=== PATIENT | male | born 1970 | race African-American/Black ===

== ENCOUNTER 2018-11-10 11:00 | Emergency (ER) | payer SELFPAY ==
[2018-11-10 11:01] VITALS: BP 133/66; PULSE 98; RESP 17; TEMP 36.8; O2SAT 99; BMI 27.8
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
[2018-11-10] MEDS: Naproxen 500 MG Tablet PO (11:22)
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
--- NOTE | 2018-11-10 12:01 | ED.DEP ---
ED Disposition - Plan for ED Patient: Instructions: ED Concussion Prescriptions: Naproxen [Naprosyn] 500 mg PO BID PRN #20 tab Cyclobenzaprine [Flexeril] 10 mg PO TID PRN #20 tab PRN Reason: Muscle Spasm Referrals: Arden Almaraz MD [STAFF PHYSICIAN] -
[2018-11-10 12:20] VITALS: BP 117/79; PULSE 62; RESP 16; O2SAT 98
== END 2018-11-10 12:20 | disposition home or self-care (01) ==
PROVIDERS: Emergency Provider Emergency Medicine
DX: S06.0X0A Concussion without loss of consciousness, initial encounter (principal); M54.2 Cervicalgia; V89.2XXA Person injured in unspecified motor-vehicle accident, traffic, initial encounter; Y93.9 Activity, unspecified; Y92.9 Unspecified place or not applicable; Y99.9 Unspecified external cause status; F17.290 Nicotine dependence, other tobacco product, uncomplicated
CPT/HCPCS: 70450; 99284

== ENCOUNTER 2018-12-09 21:32 | Emergency (ER) | payer SELFPAY ==
[2018-12-09 21:34] VITALS: BP 143/95; PULSE 89; RESP 18; TEMP 37; O2SAT 99; BMI 28.8
--- NOTE | 2018-12-09 23:04 | CT_ITS ---
STUDY: CT BRAIN WITHOUT CONTRAST REASON FOR EXAM: Male, 48 years old. Headache, left-sided, elevated blood pressure, sinus issues. RADIATION DOSAGE (If Supplied By Facility): CTDIvol = ( 44.99 ) mGy, DLP = ( 812.98 ) mGycm TECHNIQUE: Transaxial CT imaging of the brain was performed without administration of intravenous contrast material. Individualized dose optimization techniques were used for this CT. COMPARISON: CT brain noncontrast November 10, 2018 FINDINGS: Normal soft tissue structures. Normal calvarium. Normal size ventricles and extra-axial spaces for the patient's age. Normal white matter tracts of the cerebral hemispheres. Normal basal ganglia and thalami. Normal brainstem. Normal cerebellum. There is no intracranial hemorrhage. There are no findings of an acute ischemic infarction. Normal visualized paranasal sinuses. CT/Brain/Head without Contrast IMPRESSION: There is no acute intracranial pathology. There is no significant interval change. Electronically Signed: Fatemeh Jackson MD at 23:57 EDT , Service support ,
--- NOTE | 2018-12-09 23:12 | ED.VISSUMM ---
- ER Visit Summary Date of Service: 12/09/18 Chief Complaint: Headache and left ear pain History of Present Illness: The patient is a 48 M who presents with headache and left ear pain that has been off and on for the past 2 months. Patient states his headache is only on the left side of his head. Patient describes it as a pressure sensation. Patient states it is worse over the left ear and left frontal area. Patient states he had a similar episode several years ago and was diagnosed with sinus infection. Patient states he was given an antibiotic at that time which resolved his headache. Patient does admit to some upper respiratory congestion. Patient also admits to some nausea and vomiting recently. Patient states she feels like there is also some pressure behind his left eye. Patient denies any visual changes however. Physical Examination: Vital signs are stable. Patient is afebrile. Patient is in no acute distress. Oral mucosa is pink and moist. Oropharynx is clear. Tympanic membranes are clear bilateral. Nasal mucosa is congested. There is some mild tenderness over the left frontal sinus. There is no tenderness over the right frontal or bilateral maxillary sinuses. Neck is supple. Trachea is midline. There is no JVD noted. Heart was regular rate and rhythm. Lungs are clear and equal bilateral. Cranial nerves II through XII are intact. There are no focal motor or sensory deficits noted. Test Results: CT scan of the brain was obtained. There is no acute intracranial process. There is no evidence of sinusitis. Emergency Department Course and Treatment: Patient was given IV fluids. Patient was given Compazine and Benadryl. Patient states his headache has improved with this. Patient was instructed to go home and rest. Patient was instructed to follow-up with his primary care physician in 5 to 7 days for further evaluation of his headaches. He was advised that this may be migraine headache, trigeminal neuralgia, or cluster headache. Patient was advised that this would need to be further evaluated as an outpatient. Patient and his understood and were agreeable with the plan. All questions were answered. Disposition: Discharge home Impression: Headache This note was generated with [employer] dictation software. It may contain incorrect words, spelling, and punctuation that were not noted in review of the chart prior to signing ED Disposition - Plan for ED Patient: Disposition: Home or Assisted Living Diagnosis: Headache Instructions: ED Cephalgia Unspecified Referrals: Care Physician,No Primary [Primary Care Provider] - Alyse Nina DO [STAFF PHYSICIAN] - 5-7 Days
[2018-12-09] MEDS: 0.9% Normal Saline 1,000 ML 999 ML IV (23:36)
[2018-12-09] MEDS: proCHLORPERazine 10 MG/2 ML Vial IV (23:37)
[2018-12-09] MEDS: DiphenhydrAMINE 50 MG/ML Syringe 25 MG IV (23:37)
[2018-12-10 00:24] VITALS: BP 142/60; PULSE 87; RESP 18
== END 2018-12-10 00:25 | disposition home or self-care (01) ==
PROVIDERS: Emergency Provider Emergency Medicine
DX: R51 Headache (principal); H92.02 Otalgia, left ear; R11.2 Nausea with vomiting, unspecified; M54.2 Cervicalgia; Z72.0 Tobacco use
CPT/HCPCS: 70450; 96361; 96374; 96375; 99284; J7030

== ENCOUNTER → 2021-04-30 | Outpatient (CLI) | payer BC, SELFPAY | END | disposition home or self-care (01) | LOC: LABSPEC 15:37 | PROVIDERS: Referring Provider Physician Assistant Surgical; Visit Provider Physician Assistant Surgical | DX: Z20.822 Contact with and (suspected) exposure to COVID-19 (principal) | CPT/HCPCS: 87635; U0005; U0003 ==

== ENCOUNTER → 2023-08-12 | Outpatient (CLI) | payer OTHER, SELFPAY ==
[2023-08-12 10:50] LABS: Absolute Lymphocyte Count 3.93 X10^3/uL (0.83-4.51); Absolute Neutrophil Count 4.4 X10^3/uL (2.0-7.7); Basophil# 0.08 X10^3/uL; Basophil% 0.8 % (0-1); Eosinophil# 0.34 X10^3/uL; Eosinophils% 3.6 % (0-5); Hematocrit 40.7 % (40-54); Hemoglobin 13.2 g/dL (13.0-16.5); Lymphocyte # 3.93 X10^3/ul (0.83-4.51); Lymphocyte % 41.7 % (19-41); Mean Corp Hgb Conc 32.4 g/dL (32-36); Mean Corpuscular Hgb 31.2 pg (27.0-32.0); Mean Corpuscular Volume 96.2 fL (80-94); Monocyte# 0.65 X10^3/uL; Monocyte% 6.9 % (0-10); NRBC Flagged by Analyzer 0 % (0-5); Neutrophil % 46.7 % (47-70); Platelet Count 259 K/mm3 (150-450); RBC Distribution Width CV 12.7 % (11.6-14.6); RBC Distribution Width SD 44.7 fl (35.1-43.9); Red Blood Count 4.23 M/mm3 (4.6-6.2); White Blood Count 9.4 K/mm3 (4.4-11.0)
[2023-08-12 11:20] LABS: Vitamin D,25 Hydroxy 18.6 ng/mL
[2023-08-12 11:28] LABS: AST(SGOT) 26 U/L (15-37); Alanine Aminotransfer ALT/SGPT 36 U/L (16-61); Albumin, Serum 3.6 g/dL (3.2-5.0); Alkaline Phosphatase 61 U/L (45-117); Anion Gap 3 (5-15); BUN 16 mg/dL (7-18); BUN/Creat Ratio 13.2 RATIO (10-20); Calcium,Total 9.1 mg/dL (8.5-10.1); Chloride 114 mmol/L (98-107); Cholesterol 199 mg/dL (200); Creatinine, Serum 1.21 mg/dL (0.70-1.30); EST Glomerular Filtration Rate 67 mL/min (>60); Est Glom Filt Rate - Afr Amer 81 mL/min (>60); Globulin 3.5 g/dL (2.2-4.2); Glucose 100 mg/dL (74-106); High Density Lipoprotein 42 mg/dL; Potassium 4.2 mmol/L (3.5-5.1); Protein, Total 7.1 g/dL (6.4-8.2); Sodium Level 141 mmol/L (136-145); Triglycerides 249 mg/dL; Very Low Density Lipoprotein 50 mg/dL (5-40)
== END | disposition home or self-care (01) ==
LOC: MFPLAB 09:56
PROVIDERS: PCP Family Medicine; Visit Provider Family Medicine
DX: Z00.00 Encounter for general adult medical examination without abnormal findings (principal); Z13.220 Encounter for screening for lipoid disorders; Z13.1 Encounter for screening for diabetes mellitus; Z13.21 Encounter for screening for nutritional disorder
CPT/HCPCS: 36415; 80053; 80061; 82306; 85025

== ENCOUNTER → 2023-11-02 | Outpatient (CLI) | payer OTHER, SELFPAY ==
--- NOTE | 2023-11-02 15:24 | RAD_ITS ---
STUDY: X-RAY - LEFT CALCANEUS REASON FOR EXAM: Male, 53 years old. Pain TECHNIQUE: 2 view(s) of the calcaneus were obtained. COMPARISON: None. FINDINGS: Normal visualized calcaneus. RAD/Calcaneus min 2 Views IMPRESSION: Normal x-ray examination of the calcaneus. Electronically Signed: Asa Cifuentes MD at 15:28 EDT ,
--- NOTE | 2023-11-02 15:24 | RAD_ITS ---
STUDY: X-RAY - RIGHT CALCANEUS REASON FOR EXAM: Male, 53 years old. Pain TECHNIQUE: 2 view(s) of the calcaneus were obtained. COMPARISON: None. FINDINGS: Normal visualized calcaneus. RAD/Calcaneus min 2 Views IMPRESSION: Normal x-ray examination of the calcaneus. Electronically Signed: Asa Cifuentes MD at 15:28 EDT ,
[2023-11-02 17:55] LABS: Hemoglobin A1c 5.9 % (3.8-5.6)
== END | disposition home or self-care (01) ==
PROVIDERS: PCP Family Medicine; Referring Provider Nurse Practitioner Family; Visit Provider Nurse Practitioner Family
DX: M79.671 Pain in right foot (principal); R20.0 Anesthesia of skin
CPT/HCPCS: 36415; 73650; 82306; 82607; 83036

== ENCOUNTER → 2024-08-16 | Outpatient (CLI) | payer BC, SELFPAY ==
[2024-08-16 12:23] LABS: Absolute Lymphocyte Count 4.18 X10^3/uL (0.83-4.51); Absolute Neutrophil Count 3.7 X10^3/uL (2.0-7.7); Basophil# 0.05 X10^3/uL; Basophil% 0.6 % (0-1); Eosinophil# 0.29 X10^3/uL; Eosinophils% 3.3 % (0-5); Hematocrit 42.4 % (40-54); Hemoglobin 13.7 g/dL (13.0-16.5); Lymphocyte # 4.18 X10^3/ul (0.83-4.51); Mean Corp Hgb Conc 32.3 g/dL (32-36); Mean Corpuscular Hgb 30.5 pg (27.0-32.0); Mean Corpuscular Volume 94.4 fL (80-94); Mean Platelet Vol. 10.2 fl (6.2-12.0); Monocyte# 0.67 X10^3/uL; Monocyte% 7.5 % (0-10); NRBC Flagged by Analyzer 0 % (0-5); Neutrophil # 3.68 X10^3/uL (2.7-7.7); Neutrophil % 41.4 % (47-70); Platelet Count 272 K/mm3 (150-450); RBC Distribution Width CV 12.4 % (11.6-14.6); RBC Distribution Width SD 43.1 fl (35.1-43.9); Red Blood Count 4.49 M/mm3 (4.6-6.2); White Blood Count 8.9 K/mm3 (4.4-11.0)
[2024-08-16 12:41] LABS: Vitamin D,25 Hydroxy 16.3 ng/mL
[2024-08-16 12:44] LABS: AST(SGOT) 24 U/L (15-37); Alanine Aminotransfer ALT/SGPT 53 U/L (16-61); Albumin, Serum 3.6 g/dL (3.2-5.0); Alkaline Phosphatase 65 U/L (45-117); Anion Gap 6 (5-15); BUN 23 mg/dL (7-18); BUN/Creat Ratio 19.2 RATIO (10-20); Calcium,Total 9.1 mg/dL (8.5-10.1); Chloride 112 mmol/L (98-107); Cholesterol 250 mg/dL (200); EST Glomerular Filtration Rate 68 mL/min (>60); Est Glom Filt Rate - Afr Amer 82 mL/min (>60); Globulin 3.7 g/dL (2.2-4.2); Glucose 86 mg/dL (74-106); High Density Lipoprotein 46 mg/dL; PSA,Total - Annual Screen 0.94 ng/mL (0.00-4.00); Potassium 3.9 mmol/L (3.5-5.1); Protein, Total 7.3 g/dL (6.4-8.2); Sodium Level 141 mmol/L (136-145); Triglycerides 230 mg/dL; Very Low Density Lipoprotein 46 mg/dL (5-40)
== END | disposition home or self-care (01) ==
PROVIDERS: PCP Family Medicine; Referring Provider Family Medicine; Visit Provider Family Medicine
DX: Z13.220 Encounter for screening for lipoid disorders (principal); Z12.5 Encounter for screening for malignant neoplasm of prostate; E55.9 Vitamin D deficiency, unspecified; R53.83 Other fatigue; R73.03 Prediabetes
CPT/HCPCS: 36415; 80053; 80061; 82306; 83036; 84153; 84443; 85025; G0103